=== PATIENT | male | born 1980 | race Caucasian/White ===

== ENCOUNTER 2018-05-30 09:49 | Emergency (ER) | payer MEDICAID ==
--- NOTE | 2018-05-30 11:01 | Emergency Department Record ---
History of Present Illness - General Chief Complaint: Abdominal Pain Stated Complaint: ABD PAIN Time Seen by Provider: 05/30/18 10:51 Source: Patient Mode of Arrival: Ambulatory Limitations: No limitations - History of Present Illness Initial Comments: The patient is here due to L sided AP off and on for a month. He did have some bleeding when wiping after BM's a month ago but none since. The patient did see his PCP 2 weeks ago and was referred to a GI specialist whom he had an appointment with today but for some reason the office cancelled it. Today he had one episode of vomiting and the L sided pain seemed worse so he went to the [facility] who then sent him to the ER. The patient denies any hx of any abdominal surgeries. MD Complaint: Abdominal pain Onset/Timin -: Month(s) Radiation: LLQ Consistency: Constant Improves With: Nothing Worsens With: Eating - Related Data Home Medications Medication Instructions Recorded Confirmed Last Taken No Home Med [NO HOME MEDS] 05/30/18 05/30/18 Unknown Allergies Allergy/AdvReac Type Severity Reaction Status Date / Time venom-honey bee Allergy Intermediate SWELLING Verified 05/30/18 10:09 (GENERAL) Travel Screening - Travel/Exposure Within Last 30 Days Have you traveled within the last 30 days?: No - Travel/Exposure Within Last Year Have you traveled outside the [place] in the last year?: No - Additonal Travel Details Have you been exposed to anyone with a communicable illness?: No Review of Systems Constitutional: Denies: Chills, Fever Eyes: Denies: Eye discharge ENT: Denies: Congestion Respiratory: Denies: Cough, Dyspnea Cardiovascular: Denies: Arrhythmia, Chest pain Endocrine: Denies: Fatigue Gastrointestinal: Reports: Abdominal pain, Nausea. Denies: Diarrhea, Vomiting Genitourinary: Denies: Hematuria Musculoskeletal: Denies: Arthralgia Skin: Denies: Bruising Past Medical History - SOCIAL HISTORY Smoking Status: Never smoker Alcohol Use: Occasional Drug Use: None - RESPIRATORY Hx Respiratory Disorders: No - CARDIOVASCULAR Hx Cardio Disorders: No - NEURO Hx Neuro Disorders: No - GI Hx GI Disorders: No - Hx Genitourinary Disorders: No - ENDOCRINE Hx Endocrine Disorders: No - MUSCULOSKELETAL Hx Musculoskeletal Disorders: No - PSYCH Hx Psych Problems: No - HEMATOLOGY/ONCOLOGY Hx Hematology/Oncology Disorders: No Family Medical History Any Significant Family History?: No Physical Exam - General General Appearance: Alert, Oriented x3, Cooperative, No acute distress (The patient appears very comfortable in no distress.) - Head Head exam: Atraumatic, Normocephalic, Normal inspection - Eye Eye exam: Normal appearance, PERRL, EOMI - ENT Throat exam: Normal inspection. negative: Tonsillar erythema, Tonsillar exudate - Neck Neck exam: Normal inspection, Full ROM. negative: Tenderness - Respiratory Respiratory exam: Normal lung sounds bilaterally. negative: Respiratory distress - Cardiovascular Cardiovascular Exam: Regular rate, Normal rhythm, Normal heart sounds - GI/Abdominal GI/Abdominal exam: Soft, Normal bowel sounds. negative: Guarding, Hernia, Rebound, Rigid, Tenderness (The abdomen is soft and nontender in all 4 quads.) - Extremities Extremities exam: Normal inspection, Full ROM, Normal capillary refill. negative: Tenderness Course Vital Signs 05/30/18 10:00 Temperature 98.0 F Pulse Rate 81 Respiratory 18 Rate Blood Pressure 153/100 Pulse Ox 99 - Reevaluation(s) Reevaluation #1: The patient is doing very well at this time and is resting comfortably with no pain or discomfort. We are waiting on our CT report. 05/30/18 12:26 Reevaluation #2: the patient is doing well at this time. He presently is pain free and his abdomen is very soft and nontender. I did explain to him that his lab work and CT were all normal. He is encouraged to keep his appointment with the GI specialist. 05/30/18 12:53 Medical Decision Making - Data Complexity MDM Data: Labs Ordered and/or Reviewed, X-Ray Ordered and/or Reviewed - Lab Data Result diagrams: 05/30/18 11:05 05/30/18 11:05 - Radiology Data Radiology results: Report reviewed (Abd CT: Neg for any acute process.) Disposition Disposition: Discharge Clinical Impression: Abdominal pain Qualifiers: Abdominal location: unspecified location Qualified Code(s): R10.9 - Unspecified abdominal pain Disposition: Home, Self-Care Condition: (2) Stable Instructions: Abdominal Pain (ED) Additional Instructions: The patient is to use Tylenol for pain and is to see the GI specialist when possible. He is to return to the ER for any worsening symptoms. Forms: Patient Portal Access Time of Disposition: 12:55 Quality - Quality Measures Quality Measures: N/A - Blood Pressure Screening View Details: Yes Does Patient Have Any of the Following: No Blood Pressure Classification: Hypertensive Reading Systolic Measurement: 153 Diastolic Measurement: 100 Screening for High Blood Pressure: < First Hypertensive BP, F/U Documented > [ [id number]] First Hypertensive Follow-up Interventions: Referral to alternative/primary care provider.
[2018-05-30 11:14] LABS: BASO % 0.3 % (0-6); EOS % 0.4 % (0-6); GRAN % 69.1 % (47-80); HEMATOCRIT 45.2 % (42.0-52.0); HEMOGLOBIN 15.4 gm/dl (14.0-18.0); LYMPH % 21.7 % (16-45); MEAN CELL VOLUME 86.9 fl (81-97); MEAN CORPUSCULAR HEMOGLOBIN 29.6 pg (27-33); MEAN CORPUSCULAR HGB CONC 34.1 g/dl (32-36); MEAN PLATELET VOLUME 9.2 fl (7.4-10.4); MONO % 8.5 % (0-9); PLATELET COUNT 301 K/uL (130-400); RED CELL DISTRIBUTION WIDTH 12.8 % (11.5-14.5); URINE APPEARANCE CLEAR; URINE BILIRUBIN NEGATIVE (NEGATIVE); URINE BLOOD NEGATIVE (NEGATIVE); URINE COLOR YELLOW; URINE GLUCOSE (UA) NEGATIVE (NEGATIVE); URINE KETONE NEGATIVE (NEGATIVE); URINE LEUKOCYTE ESTERASE NEGATIVE (NEGATIVE); URINE NITRITE NEGATIVE (NEGATIVE); URINE PROTEIN NEGATIVE (NEGATIVE); URINE UROBILINOGEN 0.2 E.U./dL (0.20 - 1.00)
[2018-05-30 11:23] LABS: BLOOD UREA NITROGEN 14 mg/dL (6-20); CREATININE 0.9 mg/dL (0.7-1.2); EST GLOMERULAR FILTRATION RATE > 60 mL/min
[2018-05-30 11:24] LABS: LIPASE 21 U/L (13-60); TOTAL PROTEIN 7.3 g/dL (6.6-8.7)
[2018-05-30 11:26] LABS: GLUCOSE,RANDOM 89 mg/dL (74-109)
[2018-05-30 11:29] LABS: ALB/GLOB RATIO 1.5 (1.1-1.8); ALBUMIN 4.4 g/dL (4.0-5.0); ALKALINE PHOSPHATASE 58 U/L (40-129); ALT/SGPT 13 U/L (<41); AST/SGOT 14 U/L (10.0-50.0)
--- NOTE | 2018-05-31 14:21 | CT SCAN REPORT ---
EXAM: CT SCAN OF THE ABDOMEN AND PELVIS HISTORY: LEFT LOWER QUADRANT ABDOMINAL PAIN. TECHNIQUE: Serial axial CT scan of the abdomen and pelvis was performed at 2.5 mm intervals from the dome of the diaphragm down to the pubic symphysis without the use of intravenous or oral contrast. No comparison CT's are available. FINDINGS: Lung windows of the lung bases demonstrate evidence of either a focal infiltrate or pleural effusion. 4 mm nodules are identified at the bilateral lung bases. Follow-up CT scan of the chest can be obtained in six months to document stability of findings. The visualized heart size and contour is within normal limits. The liver, spleen, pancreas, adrenal glands, and gallbladder are unremarkable. The bowel gas pattern is nonspecific and nonobstructive. The appendix is clearly visualized and there is no CT evidence of appendicitis. Occasional colonic diverticula are noted without CT evidence of diverticulitis. There is no CT evidence of free intraperitoneal fluid or free intraperitoneal air. The urinary bladder is unremarkable. The bone windows demonstrate no CT evidence of a fracture or dislocation of the visualized osseous structures. Occasional sclerotic densities within the left ischial tuberosity and right femoral head likely represent bone islands. IMPRESSION: NO CT EVIDENCE OF AN ACUTE INTRAABDOMINAL PROCESS. JOB NUMBER: [id number] MTDD
== END 2018-05-30 13:06 | disposition home or self-care (01) ==
LOC: ER 09:49
DX: R10.32 Left lower quadrant pain (principal)
CPT/HCPCS: 74176; 80053; 81003; 83690; 85025; 99283; 99284